=== PATIENT | female | born 1955 | race Caucasian/White ===

== ENCOUNTER 2016-12-29 18:30 | Emergency (ER) ==
[2016-12-29 19:00] VITALS: BP 145/79
--- NOTE | 2016-12-29 19:58 | PROVIDER DOCUMENTATION ---
HPI-General Adult <Preston Farias - Last Filed: 12/29/16 19:58> - General Source: patient - History of Present Illness -Gen Adult Nature of Presenting Problems: 61 Y/o F presents to ED with Outpatient Treatment. Pt was sent to ED by Dr. Johnson to do an outpatient treatment in ED, Pt had a Ferrari catheter placed in. Location of Pain/Injury: reports: genitalia Pain Radiation: reports: no radiation Quality of Pain: reports: none Onset/Duration: reports: this evening Timing: reports: still present Context/Activities at Onset: reports: none Modifying Factors: improves with: nothing <Gayla Howard - Last Filed: 12/30/16 01:26> - General Chief Complaint: General Adult Stated Complaint: CATH PUT IN Time Seen by Provider: 12/29/16 18:59 Allergies/Adverse Reactions: Patient Allergies Allergy/AdvReac Type Severity Reaction Status Date / Time No Known Allergies Allergy Verified 12/29/16 19:00 Home Medications: Home Medication List Medication Instructions Recorded Confirmed Last Taken Type Oxycodone HCl [Oxycontin] 30 mg PO BID 12/18/13 06/12/16 06/12/16 06:00 History Diphenhydramine HCl [Sleep Aid] 50 mg PO HS 12/29/16 12/29/16 Unknown History Ibuprofen 400 mg PO TID 12/29/16 12/29/16 Unknown History Morphine E.r. [Ms Contin] 40 mg PO Q12HR 12/29/16 12/29/16 Unknown History Review of Systems - Adult - REVIEW OF SYSTEMS - ADULT Constitutional: denies: chills, fever Genitourinary: reports: other (catheter placement) <Gayla Howard - Last Filed: 12/30/16 01:26> Past History - Adult - PAST MEDICAL HISTORY-ADULT Review of Records: reports: Old Records Reviewed, Nursing Assessment Review, Medications Reviewed, Social history reviewed & non-contributory. Respiratory: reports: sleep apnea Genitourinary: reports: other (interstitial cystitis) Musculoskeletal: reports: chronic pain (back and neck), neck/back injury Endocrine/Immune: - PRIOR SURGERIES/PROCEDURES Surgical/Procedure History: reports: hysterectomy, orthopedic (extremity), back/ neck (back x 3; neck x 2) - IMMUNIZATION STATUS Childhood Immunizations: See Nurse Assessment Flu Vaccine: See Nurse Assessment - FAMILY HISTORY Family History: reviewed, not pertinent - SOCIAL HISTORY Smoking: non-smoker Substance Use: none/never Alcohol Use Frequency: never Living Situation: family <Gayla Howard - Last Filed: 12/30/16 01:26> Physical Exam-General - CONSTITUTIONAL General Appearance: alert, no apparent distress. negative: appears well - EYES Eyes: PERRL/EOMI, pink conjunctivae - HEAD, EARS, NOSE, MOUTH & THROAT HENMT: normocephalic/atraumatic, moist mucous membranes, normal ENT inspection - NECK Neck: non-tender, full range of motion, supple - RESPIRATORY Respiratory: chest non-tender, lungs clear, normal breath sounds - CARDIOVASCULAR Cardiovascular: normal peripheral pulses, regular rate, rhythm - MUSCULOSKELETAL Back Exam: normal inspection, no CVA tenderness, no vertebral tenderness - SKIN Integumentary: jaundice (mild) - NEUROLOGIC Neurologic: complementary health therapists II-XII nml as tested - PSYCHIATRIC Psych/Mental Status: normal mood/affect, normal thought content, normal thought process, oriented x 3 <Gayla Howard - Last Filed: 12/30/16 01:26> Progress - PLAN OF CARE/RESULTS Progress/Plan/Lab Results: Vital Signs - 24 hr 12/29/16 18:57 Temperature 97.6 F Pulse Rate 104 H Respiratory 20 Rate Blood Pressure 145/79 O2 Sat by Pulse 97 Oximetry <Gayla Howard - Last Filed: 12/30/16 01:26> Departure - Departure Time of Disposition Order: 19:59 Certified Medical Emergency: Urgent <Preston Farias - Last Filed: 12/29/16 19:58> - Departure Time of Disposition Order: 19:59 Certified Medical Emergency: Emergent <Gayla Howard - Last Filed: 12/30/16 01:26> - Departure DIAGNOSIS: Ferrari catheter in place Disposition: HOME 01 Condition: Fair Additional Instructions: Follow up with Dr. Live. ED Follow Up Instructions: You have been treated by a care provider in the Emergency Department. These instructions are being provided to you so you can have an understanding of how to care for yourself upon discharge. Upon discharge from the Emergency Department, you are responsible for making arrangements for follow-up care by a physician of your choice. Take all prescribed medications as directed. Return to the Emergency Department immediately for any new or worsening symptoms. You may call the Physician Referral phone number at [phone] to obtain a list of Physicians who are taking new patients. Referrals: David Live MD [Primary Care Provider] - Instructions: Ferrari Catheter Care, Adult Attestation - Physician/ YESENIA Attestation Patient care was provided by Advanced Practice Provider:: Yes Advanced Practice Provider:: Preston Farias Advanced Practice Provider documentation review:: The Mid-level provider documentation, treatment plan and medical decision making was reviewed by the physician who agrees with all treatment and medical decision making by the MLP. <Preston Farias - Last Filed: 12/29/16 19:58> - Scribe Verification/Attestation Scribe:: Gayla Howard Acting as Scribe for:: Pk Shah Scribe documention review:: This chart was documented by a scribe and accurately reflects the service the provider performed and the decisions made by the provider. - Physician/ YESENIA Attestation Patient care was provided by Advanced Practice Provider:: Yes Advanced Practice Provider:: Preston Farias Advanced Practice Provider documentation review:: The Mid-level provider documentation, treatment plan and medical decision making was reviewed by the physician who agrees with all treatment and medical decision making by the MLP. <Gayla Howard - Last Filed: 12/30/16 01:26> Physician Attestation
== END 2016-12-29 19:52 | disposition home or self-care (01) ==
LOC: P.ED 18:30
DX: Z46.6 Encounter for fitting and adjustment of urinary device (principal); R17 Unspecified jaundice; G89.29 Other chronic pain; M54.9 Dorsalgia, unspecified; M54.2 Cervicalgia; Z79.1 Long term (current) use of non-steroidal anti-inflammatories (NSAID); Z79.899 Other long term (current) drug therapy
CPT/HCPCS: 51702; 99282

== ENCOUNTER 2017-01-01 07:16 | Day surgery (SDC) ==
[2017-01-01] MEDS ORDERED: NS 1,000 ML ONE (08:01)
[2017-01-01] MEDS ORDERED: ALBUMIN 25% IV ONE (08:30)
[2017-01-01 08:33] LABS: INR 1.67; PROTIME 17.8 Seconds (9.2-11.7); PTT 34.3 Seconds (22.0-36.0)
[2017-01-01 10:02] VITALS: BP 124/80
--- NOTE | 2017-01-01 10:24 | Diag Imaging Result Document ---
PROCEDURE NAME: US GB < RUQ (LIMITED) - 01/01/2017 ULTRASOUND-GUIDED PARACENTESIS: FINDINGS: Prior to the procedure imaging was performed. No free fluid was found in the left abdomen. Only a small amount of fluid was found about the tip of the right lobe of the liver. The patient is extremely edematous in the subcutaneous tissues. IMPRESSION: Paracentesis was not performed as there was only a small amount of fluid about the right lobe of the liver.
== END 2017-01-01 10:15 | disposition home or self-care (01) ==
LOC: OPS 07:16 → EDSTATUS 08:00 → OPS 10:15
PROVIDERS: ATTEND Internal Medicine Gastroenterology
DX: R18.8 Other ascites (principal); Z53.9 Procedure and treatment not carried out, unspecified reason; R17 Unspecified jaundice; K74.60 Unspecified cirrhosis of liver; R33.9 Retention of urine, unspecified; Z87.440 Personal history of urinary (tract) infections; Z79.899 Other long term (current) drug therapy
CPT/HCPCS: 76705; 85610; 85730; J7030

== ENCOUNTER 2017-01-22 08:00 | Observation (INO) ==
[2017-01-22 08:51] LABS: BASO% 0.1 % (0.0-0.8); EOS# 0.01 X1000 (0.0-0.7); EOS% 0.1 % (0.0-10.0); HEMATOCRIT 38.4 % (37.0-47.0); HEMOGLOBIN 13.1 g/dL (12.0-16.0); IMM GRAN# 0.04 X1000 (0.0-0.04); IMM GRAN% 0.3 % (0.0-0.5); LYMPH# 0.59 X1000 (1.2-3.4); LYMPH% 4.7 % (20.5-51.1); MANUAL DIFF NEEDED? NO; MCH 36.3 PG (27-31); MCHC 34.1 g/dL (33-37); MCV 106.4 FL (81-99); MONO# 1.31 X1000 (0.11-0.59); MONO% 10.4 % (1.7-9.3); MPV 10.4 FL (7.4-10.4); NEUT% 84.4 % (42.2-75.2); PLT 95 X1000 (130-400); RBC 3.61 XMIL (4.2-5.4)
--- NOTE | 2017-01-22 08:57 | EKG Report ---
Test Performed on : 01/22/2017 08:23:42 AM Test Reason : CP Blood Pressure : / mmHG Vent. Rate : 099 BPM Atrial Rate : 099 BPM P-R Int : 162 ms QRS Dur : 080 ms QT Int : 348 ms P-R-T Axes : 025 049 016 degrees QTc Int : 446 ms Normal sinus rhythm. Nonspecific T wave abnormality Abnormal ECG No previous ECGs available Unconfirmed Result
[2017-01-22 09:06] LABS: AGAP 10; ALBUMIN 2.3 g/dL (3.5-5.0); ALKALINE PHOSPHATASE 364 U/L (32-104); AMYLASE 16 U/L (20-200); BUN 9 mg/dL (8-22); CALCIUM 8.2 mg/dL (8.8-10.2); CHLORIDE 97 mmol/L (98-107); COSMO 263; GOT 97 U/L (10-30); GPT 31 U/L (10-36); LIPASE 16 U/L (13-60); SODIUM 132 mmol/L (136-145); TCO2 25 mmol/L (25-35); TOTAL PROTEIN 7.4 g/dL (6.3-8.3)
--- NOTE | 2017-01-22 09:40 | PROVIDER DOCUMENTATION ---
HPI-General Adult - General Chief Complaint: N/V/D Stated Complaint: N/V/D Time Seen by Provider: 01/22/17 08:38 Source: patient, family Allergies/Adverse Reactions: Patient Allergies Allergy/AdvReac Type Severity Reaction Status Date / Time No Known Allergies Allergy Verified 12/29/16 19:00 Home Medications: Home Medication List Medication Instructions Recorded Confirmed Last Taken Type Oxycodone HCl [Oxycontin] 30 mg PO DIRECTED PRN PRN 12/18/13 01/01/17 06:00 History Diphenhydramine HCl [Sleep Aid] 50 mg PO HS 12/29/16 01/01/17 Unknown History Ibuprofen 400 mg PO TID PRN 12/29/16 01/01/17 12/29/16 History Morphine E.r. [Ms Contin] 40 mg PO BID 12/29/16 01/01/17 12/31/16 18:00 History Furosemide [Lasix] 80 mg PO DAILY 01/01/17 01/01/17 01/01/17 07:00 History Lactulose 10 gm PO DIRECTED 01/01/17 01/01/17 12/31/16 14:00 History Nitrofurantoin Macrocrystal 100 mg PO BID 01/01/17 01/01/17 12/31/16 19:00 History [Nitrofurantoin] Promethazine [Phenergan] 25 mg PO Q6H PRN PRN 01/01/17 01/01/17 12/29/16 History Spironolactone 50 mg PO DAILY 01/01/17 01/01/17 01/01/17 07:00 History - History of Present Illness -Gen Adult Nature of Presenting Problems: pt is a 61 yof with a hx of htn, Hep C,cirrosis of the liver , has had jaundice and ascites in the past. Pt reports today with 1wk hx of lethargic weak, 20 lbs of fluid retention and sob with n and v. Denies f,c,abd pain. Location of Pain/Injury: reports: generalized Severity: reports: moderate Onset/Duration: reports: 1 week ago Timing: reports: still present Similar Symptoms Previously?: Yes Recently seen or treated by another doctor?: No Review of Systems - Adult - REVIEW OF SYSTEMS - ADULT Constitutional: reports: fatique, weight gain. denies: chills, fever, night sweats Eyes: reports: no symptoms reported Ears, Nose, Mouth & Throat: denies: ear pain, sinus problem, throat pain Cardiovascular: denies: chest pain, irregular heart rate, orthopnea Respiratory: reports: no symptoms reported Gastrointestinal: reports: nausea, poor appetite, vomiting. denies: abdominal pain, hematemesis, difficulty swallowing, frequent heartburn Genitourinary: denies: flank pain, frequent UTI's, hematuria, hesitency Musculoskeletal: reports: no symptoms reported Integumentary: reports: no symptoms reported Neurological: reports: no symptoms reported Psychiatric: reports: no symptoms reported Endocrine: reports: no symptoms reported Hematologic/Lymphatic: reports: no symptoms reported Allergic/Immunologic: reports: no symptoms reported All Other Systems: Reviewed and Negative Past History - Adult - PAST MEDICAL HISTORY-ADULT Review of Records: reports: Nursing Assessment Review Major Childhood Illnesses: reports: denies history Respiratory: reports: sleep apnea Genitourinary: reports: other (interstitial cystitis) Musculoskeletal: reports: chronic pain (back and neck), neck/back injury Endocrine/Immune: - PRIOR SURGERIES/PROCEDURES Surgical/Procedure History: reports: hysterectomy, orthopedic (extremity), back/ neck (back x 3; neck x 2) - IMMUNIZATION STATUS Childhood Immunizations: See Nurse Assessment Flu Vaccine: See Nurse Assessment - FAMILY HISTORY Family History: reviewed, not pertinent - SOCIAL HISTORY Smoking: denies Substance Use: none/never Physical Exam-General - PHYSICAL EXAM-ADULT Initial Vital Signs Reviewed: Yes - CONSTITUTIONAL General Appearance: negative: appears well (ill appearance) - EYES Eyes: PERRL/EOMI, other (jaundice) - HEAD, EARS, NOSE, MOUTH & THROAT HENMT: negative: moist mucous membranes (dry oral membranes) - NECK Neck: non-tender, full range of motion, supple, normal inspection - RESPIRATORY Respiratory: chest non-tender, no pleuratic chest pain, no respiratory distress , no accessory muscle use, decreased breath sounds (bases bilaterally) - CARDIOVASCULAR Cardiovascular: regular rate, rhythm, no edema, no gallop, no JVD, no murmur - GASTROINTESTINAL (ABDOMEN) Abdominal Exam: soft, no organomegaly, no pulsatile mass, distended (mildly), other (ascites). negative: guarding, rigid, rebound - MUSCULOSKELETAL Back Exam: normal inspection, no CVA tenderness, no vertebral tenderness Extremity: normal range of motion, non-tender - SKIN Integumentary: normal turgor, warm/dry, jaundice - NEUROLOGIC Neurologic: grossly normal - PSYCHIATRIC Psych/Mental Status: normal mood/affect, normal thought content, normal thought process, oriented x 3 Progress - PLAN OF CARE/RESULTS Progress/Plan/Lab Results: Orders Category Date Time Status Finger Stick Blood Sugar (ED) DIRECTED Care 01/22/17 08:08 Active Saline Loc DIRECTED Care 01/22/17 08:07 Active NPO Diet 01/22/17 08:07 Active ALCOHOL BLOOD Stat Lab 01/22/17 08:40 Completed AMMONIA [CHEM] Stat Lab 01/22/17 08:40 Completed AMYLASE [CHEM] Stat Lab 01/22/17 08:40 Completed CBC WITH ELECTRONIC DIFF [HEME] Stat Lab 01/22/17 08:40 Completed COMPREHENSIVE METABOLIC PANEL [CHEM] Stat Lab 01/22/17 08:40 Completed LIPASE [CHEM] Stat Lab 01/22/17 08:[address] W/POSS RFLX CULT [URINALYSIS] Stat Lab 01/22/17 08:07 Uncollected EKG [EKG] Stat Ther 01/22/17 08:08 Draft Vital Signs - 24 hr 01/22/17 08:17 Temperature 98.2 F Pulse Rate 99 H Respiratory 16 Rate Blood Pressure 122/76 O2 Sat by Pulse 99 Oximetry Laboratory Tests 01/22/17 01/22/17 01/22/17 08:31 08:40 08:40 WBC 12.58 H RBC 3.61 L Hgb 13.1 Hct 38.4 MCV 106.4 H MCH 36.3 H MCHC 34.1 RDW Std Deviation 17.1 H Plt Count 95 L MPV 10.4 Immature Gran % (Auto) 0.3 Neut % (Auto) 84.4 H Lymph % (Auto) 4.7 L [place] % (Auto) 10.4 H Eos % (Auto) 0.1 Baso % (Auto) 0.1 Immature Gran # (Auto) 0.04 Neut # (Auto) 10.62 H Lymph # (Auto) 0.59 L [place] # (Auto) 1.31 H Eos # (Auto) 0.01 Baso # (Auto) 0.01 Sodium 132 L Potassium 4.0 Chloride 97 L Carbon Dioxide 25 Anion Gap 10 BUN 9 Creatinine 0.5 Estimated GFR/1.73 m2 > 60 BUN/Creatinine Ratio 18 Glucose 97 POC Glucose 92 Calculated Osmolality 263 Calcium 8.2 L Total Bilirubin 5.80 H AST 97 H ALT 31 Alkaline Phosphatase 364 H Ammonia Total Protein 7.4 Albumin 2.3 L Globulin 5.0 Albumin/Globulin Ratio 0.0 Amylase 16 L Lipase 16 Plasma/Serum Ethyl Alc 01/22/17 01/22/17 08:40 08:40 WBC RBC Hgb Hct MCV MCH MCHC RDW Std Deviation Plt Count MPV Immature Gran % (Auto) Neut % (Auto) Lymph % (Auto) [place] % (Auto) Eos % (Auto) Baso % (Auto) Immature Gran # (Auto) Neut # (Auto) Lymph # (Auto) [place] # (Auto) Eos # (Auto) Baso # (Auto) Sodium Potassium Chloride Carbon Dioxide Anion Gap BUN Creatinine Estimated GFR/1.73 m2 BUN/Creatinine Ratio Glucose POC Glucose Calculated Osmolality Calcium Total Bilirubin AST ALT Alkaline Phosphatase Ammonia 51 Total Protein Albumin Globulin Albumin/Globulin Ratio Amylase Lipase Plasma/Serum Ethyl Alc Laboratory Tests 01/22/17 01/22/17 01/22/17 08:31 08:40 08:40 WBC 12.58 H RBC 3.61 L Hgb 13.1 Hct 38.4 MCV 106.4 H MCH 36.3 H MCHC 34.1 RDW Std Deviation 17.1 H Plt Count 95 L MPV 10.4 Immature Gran % (Auto) 0.3 Neut % (Auto) 84.4 H Lymph % (Auto) 4.7 L [place] % (Auto) 10.4 H Eos % (Auto) 0.1 Baso % (Auto) 0.1 Immature Gran # (Auto) 0.04 Neut # (Auto) 10.62 H Lymph # (Auto) 0.59 L [place] # (Auto) 1.31 H Eos # (Auto) 0.01 Baso # (Auto) 0.01 Sodium 132 L Potassium 4.0 Chloride 97 L Carbon Dioxide 25 Anion Gap 10 BUN 9 Creatinine 0.5 Estimated GFR/1.73 m2 > 60 BUN/Creatinine Ratio 18 Glucose 97 POC Glucose 92 Calculated Osmolality 263 Calcium 8.2 L Total Bilirubin 5.80 H AST 97 H ALT 31 Alkaline Phosphatase 364 H Ammonia Total Protein 7.4 Albumin 2.3 L Globulin 5.0 Albumin/Globulin Ratio 0.0 Amylase 16 L Lipase 16 Plasma/Serum Ethyl Alc 01/22/17 01/22/17 08:40 08:40 WBC RBC Hgb Hct MCV MCH MCHC RDW Std Deviation Plt Count MPV Immature Gran % (Auto) Neut % (Auto) Lymph % (Auto) [place] % (Auto) Eos % (Auto) Baso % (Auto) Immature Gran # (Auto) Neut # (Auto) Lymph # (Auto) [place] # (Auto) Eos # (Auto) Baso # (Auto) Sodium Potassium Chloride Carbon Dioxide Anion Gap BUN Creatinine Estimated GFR/1.73 m2 BUN/Creatinine Ratio Glucose POC Glucose Calculated Osmolality Calcium Total Bilirubin AST ALT Alkaline Phosphatase Ammonia 51 Total Protein Albumin Globulin Albumin/Globulin Ratio Amylase Lipase Plasma/Serum Ethyl Alc - EKG 1 Time of EKG reading by physician:: 08:23 EKG Read and Signed by:: Donald Burt EKG Interpretation (*Must complete 3 of following elements*): Abnormal Rate: 99 Rhythm: nsr Stella: normal ST Wave: non-specific ST changes - CONSULTS/PCP/HOSPITALIST Notification #1 *Consult/PCP/Hospitalist*: Time Discussed: 10:52 Departure - Departure Time of Disposition Order: 10:52 DIAGNOSIS: Dehydration, Weakness, Jaundice, Abnormal laboratory test result Disposition: ADMITTED INPATIENT 09 Certified Medical Emergency: Emergent Condition: Stable Attestation - Scribe Verification/Attestation Scribe:: Raimundo Hunt Acting as Scribe for:: Donald Burt Scribe documention review:: This chart was documented by a scribe and accurately reflects the service the provider performed and the decisions made by the provider.
[2017-01-22] MEDS ORDERED: ZOFRAN IV PRN (11:09)
[2017-01-22] MEDS ORDERED: NS 1,000 ML IV ONE (11:11)
[2017-01-22 12:03] LABS: URINE SOURCE CATH
[2017-01-22 12:07] LABS: BILIRUBIN URINE 1+ (NEGATIVE); BLOOD URINE 1+ (NEGATIVE); CLARITY SL. CLOUDY (CLEAR); COLOR AMBER; GLUCOSE URINE NEGATIVE (NEGATIVE); LEUKOCYTES URINE 1+ (NEGATIVE); NITRITE URINE POSITIVE (NEGATIVE); PROTEIN URINE TRACE mg/dL (NEGATIVE); SP GRAVITY URINE 1.015; UROBILINOGEN URINE 4+(12 mg/dL)
--- NOTE | 2017-01-22 12:07 | Diag Imaging Result Document ---
PROCEDURE NAME: US ABDOMEN-COMPLETE - 01/22/2017 ABDOMINAL ULTRASOUND: FINDINGS: Difficult exam due to the patient's size. The pancreas, aorta, and inferior vena cava are all obscured. There is fluid about the liver. No focal hepatic abnormality. Normal right kidney. No hydronephrosis. The gallbladder has been removed. The common bile duct measures 4 mm. The spleen is not enlarged. There is a small amount of fluid about the spleen. Normal left kidney. No hydronephrosis. IMPRESSION: 1. [id number] amount of ascites. There is less fluid than on a recent study from 01/01/2017. 2. Cholecystectomy. A preliminary report was given at 11:53 a.m..
[2017-01-22 12:14] LABS: URINE CULTURE PL NEEDED? YES; URINE EPITHELIAL CELLS <10 /HPF (<10)
[2017-01-22] MEDS ORDERED: SERAX PO PRN (16:29)
[2017-01-22] MEDS ORDERED: SODIUM CHLORIDE 0.9% INJ SCH (16:30)
[2017-01-22] MEDS: ROCEPHIN 1 GM/NS 50 ML IV SCH (16:56)
[2017-01-22] MEDS: PROTONIX IV SCH (16:56)
--- NOTE | 2017-01-22 17:11 | HISTORY AND PHYSICAL ---
CHIEF COMPLAINT: Just felt sick, reportedly. HISTORY OF PRESENT ILLNESS: She has never been admitted interestingly enough. She does have hepatitis C with what was felt to be cirrhosis, hypertension. She came in because she thought she had strep throat. She does also have interstitial cystitis. Workup in the ER today really just showed mild leukocytosis with possible UTI, although she has interstitial cystitis and has a chronic inflammatory condition; I think she takes Macrobid for that. She reports no nausea or vomiting. No diarrhea. She is on high-dose diuretics for ascites. I do not think they have been able to do a successful paracentesis because she has never had enough fluid and is fairly obese at baseline. In any case, she was admitted for dehydration but she has been eating and drinking okay. Her vital signs are really unremarkable. A little bit of tachycardia. She does have some leukocytosis but that may be related to urinary symptoms. In any case, overall she seems to be pretty stable. Reportedly hepatitis C and cirrhosis but her C antibody is negative. PAST MEDICAL HISTORY: 1. Again chronic pain disorder. 2. Cirrhosis. 3. Presumably hepatitis C but is not hepatitis C positive. PAST SURGICAL HISTORY: 1. She has had a hysterectomy. 2. She has had a cholecystectomy. SOCIAL HISTORY: No tobacco or ethanol. No drugs. ALLERGIES: No known drug allergies. MEDICATIONS: She is on OxyContin, Benadryl, MS Contin 30 b.i.d., celecoxib 200 daily, diazepam 10 daily, Phenergan twice 25 p.r.n., lactulose 10 daily, Lasix 40 b.i.d., Macrobid 100 b.i.d., spironolactone 100 daily. REVIEW OF SYSTEMS: Otherwise negative x10 point review of systems. PHYSICAL EXAMINATION: VITAL SIGNS: Blood pressure 117/68, heart rate 107, respiratory rate 20, temperature 98.1 degrees, 94% on room air. GENERAL: Obese female, in no acute distress. HEAD: Normocephalic, atraumatic. EYES: Pupils equal, round, reactive to light. Extraocular movements were intact. EAR/NOSE/THROAT: She had moist mucous membranes. Oropharynx is clear. NECK: Supple. CARDIOVASCULAR: Regular rate and rhythm. No murmurs, gallops, or rubs. No ventricular heaves. PULMONARY: Bilateral breath sounds. Clear to auscultation. ABDOMEN: Her belly is obese making her abdominal exam limited. EXTREMITIES: No clubbing or cyanosis. Trace pitting edema. NEUROLOGICAL: Nonfocal. No asterixis. MUSCULOSKELETAL: She is 4/5 on all 4 extremities. LABORATORY: Sodium 132. T bilirubin of 5.8. White count 12, hemoglobin and hematocrit 13 and 38, MCV 106, platelets of 95,000. PROBLEM LIST: 1. Urinary tract infection, possible interstitial nephritis. She is on Rocephin. Follow up on urine culture. 2. Decompensated cirrhosis. Her abdominal ultrasound shows small to moderate ascites, not really amenable to tap. Apparently less than there was before and it was going to be too high of a risk to tap before. She is on high-dose diuretics. Will continue those. 3. Hypertension. Continue medications. 4. Chronic pain disorder. Continue medications. We will check an ammonia level just to make sure that there is not a concurrent hepatic encephalopathy, although she does not appear that confused. In any case, patient is stable. We will continue to follow closely. Likely discharge tomorrow if she is clinically stable. I am going to try to get the records from Dr. Live's office. Her hepatitis serologies are negative so she may have SILVA versus another type of etiology for her cirrhosis. Continue to follow.
[2017-01-22] MEDS: OXYCONTIN PO PRN ×2 (17:42→23:47)
[2017-01-22] MEDS: LASIX PO SCH (20:07)
[2017-01-22] MEDS: MS CONTIN PO SCH (20:09)
[2017-01-23] MEDS: OXYCONTIN PO PRN (05:47)
[2017-01-23 06:22] LABS: HEMATOCRIT 35.7 % (37.0-47.0); HEMOGLOBIN 11.9 g/dL (12.0-16.0); MCH 35.8 PG (27-31); MCHC 33.3 g/dL (33-37); MCV 107.5 FL (81-99); MPV 10.8 FL (7.4-10.4); RBC 3.32 XMIL (4.2-5.4)
[2017-01-23 06:46] LABS: AGAP 5; ALBUMIN 2.1 g/dL (3.5-5.0); ALKALINE PHOSPHATASE 305 U/L (32-104); BUN 12 mg/dL (8-22); CHLORIDE 101 mmol/L (98-107); COSMO 270; GOT 66 U/L (10-30); GPT 24 U/L (10-36); SODIUM 136 mmol/L (136-145); TCO2 30 mmol/L (25-35); TOTAL PROTEIN 6.7 g/dL (6.3-8.3)
[2017-01-23] MEDS ORDERED: ALDACTONE PO SCH (09:00)
[2017-01-23] MEDS: MS CONTIN PO SCH (10:27)
[2017-01-23] MEDS: LASIX PO SCH (10:27)
[2017-01-23 11:05] VITALS: BP 99/70
[2017-01-23] MEDS ORDERED: LACTULOSE PO ONE (14:28)
[2017-01-23] MEDS: ROCEPHIN 1 GM/NS 50 ML IV SCH (16:00)
--- NOTE | 2017-01-23 16:15 | DISCHARGE SUMMARY ---
ADMISSION DATE: 01/22/2017 DISCHARGE DATE: 01/23/2017 ADMISSION DIAGNOSES: 1. Urinary tract infection with possible interstitial nephritis. 2. Decompensated cirrhosis. 3. Hypertension. 4. Chronic pain syndrome. DISCHARGE DIAGNOSES: 1. Urinary tract infection with gram-negative rods in the urine. She was on Rocephin. She will go home with Omnicef. Full urine culture is pending. 2. Decompensated cirrhosis. Liver enzymes improving. 3. Hypertension, stable. 4. Chronic pain disorder, stable. HOSPITAL COURSE: Ms. Avila is a 61-year-old female who is morbidly obese, has a medical history of chronic pain syndrome secondary to her chronic interstitial cystitis. She states she has had this for 10 years, history of cirrhosis, questionable hepatitis C versus SILVA. Apparently she was started on Rocephin. She had a urinalysis that came back with bacteria. She states that she has felt much better. Will send her home on Omnicef for urinary tract infection. DISCHARGE MEDICATIONS: 1. Lasix 40 mg twice daily. 2. Lactulose 30 mL twice daily. 3. MS Contin (morphine) 30 mg p.o. twice daily. 4. OxyContin 30 mg p.o. q. six to eight hours p.r.n. 5. Spironolactone 100 mg p.o. daily. 6. Omnicef 300 mg p.o. twice daily, 14 doses. 7. Celecoxib 200 mg p.o. daily. 8. Diazepam 10 mg p.o. daily. 9. Benadryl 50 mg p.o. at bedtime as needed. 10. Ibuprofen 400 mg p.o. three times a day as needed. 11. Phenergan 25 mg p.o. every four hours p.r.n. DISCHARGE DIET: Regular. DISCHARGE VITAL SIGNS: Temperature 97.7. Heart rate was 67, respiratory rate 18. Blood pressure was 115 systolic, and O2 saturation was 94% on room air. DISCHARGE INSTRUCTIONS: Followup with Dr. Live in two to four weeks. If symptoms return, seek medical advice. Continue her Omnicef 300 mg p.o. twice daily for seven days. IMAGING: Small to moderate amount of ascites, less fluid than on recent studies, and cholecystectomy. DISCHARGE LABORATORY DATA: White blood cells 8000, hemoglobin 11, hematocrit 35, platelet count 91, sodium 136, potassium 4.0, BUN 12, creatinine 0.7, glucose 74, calcium 8, total bilirubin 3.8, AST 66, ALT 24. Ammonia was 69, amylase 16, lipase 16. The urine culture had gram-negative rods, and the urinalysis had positive nitrites, white blood cells, and 2+ bacteria. Dictated by JASON Blackwell for Marino Barkley MD
[2017-01-23] MEDS: PROTONIX IV SCH (19:17)
[2017-01-23] MEDS ORDERED: LACTULOSE PO SCH (21:00)
== END 2017-01-23 19:15 | disposition home or self-care (01) ==
LOC: P.ED 08:00 → P.MEDSURG 08:01 → INTOOBSV 08:01
PROVIDERS: ATTEND Internal Medicine
DX: N39.0 Urinary tract infection, site not specified (principal); E86.0 Dehydration; K74.60 Unspecified cirrhosis of liver; I10 Essential (primary) hypertension; N30.10 Interstitial cystitis (chronic) without hematuria; G89.4 Chronic pain syndrome; E66.01 Morbid (severe) obesity due to excess calories; Z68.41 Body mass index [BMI] 40.0-44.9, adult; B96.20 Unspecified Escherichia coli [E. coli] as the cause of diseases classified elsewhere; R17 Unspecified jaundice; R18.8 Other ascites; R11.2 Nausea with vomiting, unspecified; R19.7 Diarrhea, unspecified; Z86.19 Personal history of other infectious and parasitic diseases; R53.83 Other fatigue; R06.02 Shortness of breath; Z79.899 Other long term (current) drug therapy
CPT/HCPCS: 76700; 80053; 81001; 82140; 82150; 82607; 82746; 82948; 83690; 85025; 85027; 87077; 87088; 87186; 93005; C9113; G0480; J0696; J2405; J7030; 80320; S0164